=== PATIENT | male | born 1950 | race Caucasian/White ===

== ENCOUNTER 2016-09-05 10:38 | Day surgery (SDC) | payer MEDICARE, MEDICAID ==
--- NOTE | 2016-09-03 15:27 | PCM.ANEPRE ---
Anesthesia Pre-Op Review Reason for Review: AAA, moderate thrumbus, now off plavix Anesthesia Recommendations: Delay until Additional Data Obtain (Follow-up with Dr. Hamlin given changes in ultrasound findings and potential need for resuming Plavix.) Ed Ross MD Sep 03, 2016 15:27
[~2016-09-05] VITALS: Ht 172.7 cm; Wt 86.2 kg
[2016-09-05] VITALS (12 sets, daily range): BP systolic 126–186; BP diastolic 67–108; PULSE 54–80; RESP 11–24; O2SAT 92–98
[~2016-09-05 10:38] MED LIST: ADV250INH IH; ALBU8.5H2 INHALATION; ALLO300T2 PO; ATOR20TA PO; CHOL40003 PO; CLOP75TA28 PO; Clindamycin 600 mg/50 mL D5W IV ONE; LEVO750T39 PO; Lactated Ringer's 1,000 ML IV SCH; METO50TA3 PO; MULT-1018 PO; NITR0.4T SL; OXYC-465 PO; TIZA4CAP8 PO; TRAZ-115 PO
[2016-09-05] MEDS ORDERED: Ondansetron 2 mg/mL 2 mL Inj ONE (10:39)
[2016-09-05] MEDS ORDERED: Neostigmine 1 mg/mL 10 mL Inj ONE (10:39)
[2016-09-05] MEDS ORDERED: Propofol 10,000 mCg/mL 20 mL Inj ONE (10:39)
[2016-09-05] MEDS ORDERED: Glycopyrrolate 0.2 MG/ML 1mL Inj ONE (10:39)
[2016-09-05] MEDS ORDERED: Rocuronium 10 mg/mL 5 mL Inj ONE (10:39)
[2016-09-05] MEDS ORDERED: fentaNYL-PF 50 mCg/mL 2 mL Inj ONE (10:39)
[2016-09-05] MEDS ORDERED: Lactated Ringer's 1,000 ML IV ONE (11:18)
[2016-09-05] MEDS ORDERED: Clindamycin 600 mg/50 mL D5W Premix IV ONE (11:31)
--- NOTE | 2016-09-05 12:45 | PCM.HPANE ---
Patient Data Surgeon Admitting Provider: Attending Provider:Itz Clarke MD Primary Care Physician:Gibson Carranza MD Other Provider:lEliot Gudino Anesthesia Reason for Visit Left Inguinal Hernia Ht/WT & BMI Height (Feet): 5 Height (Inches): 8.00 Weight (Kilograms): 86.180 Body Mass Index 28.00 Allergies Coded Allergies: Penicillins (Verified Allergy, Severe, "rash, itching, hives, made me a nervous wreck", 03/23/12) isosorbide (Verified Allergy, Intermediate, HEADACHE, 06/25/15) codeine (Verified Allergy, Unknown, nausea, 09/03/16) Past Anesthesia History Anesthesia History: Denies:: Abnormal Airway, Anesthesia Reactions (no prior anes), Difficult Intubation, Fam Anesthesia Reaction Diabetes History Hx Diabetes?: No MRSA MRSA: No Medications Blood Thinner: Plavix Hypertension Medication: Yes Home Meds Incl Beta Anjum: Yes Date Beta Anjum Taken: Sep 05, 2016 Time Beta Anjum Taken: 744 Reported Medications Cholecalciferol (Vitamin D3) (Vitamin D3)4,000 Unit Capsule4,000 Unit PO DAILY 09/03/16 Trazodone 50 Mg [id number] Mg PO HS Ref 0 09/03/16 Tizanidine 4 Mg Capsule4 Mg PO Q8H PRN back/muscle pain 09/03/16 oxyCODONE-Acetaminophen 7.5-325 mg 1 Each Tablet1 Tab PO Q6H PRN For Pain Ref 0 09/03/16 Nitroglycerin SL (Nitrostat)0.4 Mg Tab.subl0.4 Mg SL Q5MIN PRN For Chest Pain # 1 BOTTLE 09/03/16 Multivitamin (Multi Vitamin Daily)1 Each Tablet1 Each PO DAILY 30 Days Ref 0 09/03/16 Metoprolol Tartrate 50 Mg Qbvktr60 Mg PO BID 30 Days Ref 0 09/03/16 Levofloxacin 750 Mg Bkalru800 Mg PO DAILY 09/03/16 Clopidogrel 75 Mg Jwcvlw15 Mg PO DAILY Ref 0 last dose friday08/31/16 09/03/16 Atorvastatin (Lipitor)20 Mg Thwzwl61 Mg PO DAILY Ref 0 09/03/16 Allopurinol 300 Mg Wllude960 Mg PO DAILY Ref 0 09/03/16 Albuterol HFA (Proair HFA)8.5 Gm Hfa.aer.ad2 Puffs INHALATION Q4H PRN For Shortness of Breath #1 INHALER 09/03/16 Fluticasone/Salmeterol (Advair 250-50 Diskus)60 Puff/Inh Disk1 Puff IH BID #1 DISK Ref 0 09/03/16 Discontinued Reported Medications Albuterol-Expunged Drug, Do Not Renew! 90 Mcg/Puff Hfa.aer.ad2 Puffs INH QID PRN 04/24/12 Simvastatin-Expunged Drug, Choose New Med! 40 Mg Ptdpkh73 Mg PO HS INPATIENT MAX DOSE 40 MG 03/25/12 Clopidogrel-Expunged Drug, Do Not Renew! (Plavix-Expunged Drug, Do Not Renew!) 75 Mg Tjkrbi44 Mg PO DAILY 03/25/12 Metoprolol Tart-Expunged Drug, Do Not Renew! 50 Mg Tsqipc79 Mg PO BID 03/25/12 [Nicotine Patch] No Conflict Check1 Patch SUBD DAILY 03/25/12 Aspirin-Expunged Drug, Do Not Renew! 81 Mg Tab.chew81 Mg PO DAILY 03/25/12 Amitriptyline-Expunged Drug, Do Not Renew! 25 Mg Kvdmho13 Mg PO HS 03/23/12 History History of ENT Problems?: No HEENT History: Denies:: Abnormal Airway Cataracts Difficult Intubation Dysphagia Glaucoma Hearing Problem Sinus Problem (mornings "plugged up") TMJ Teeth Condition: Missing Teeth Hx of Heart Problems?: Yes Cardiovascular History: Positive for:: Abdominal Aortic Aneurism (abdominal aortic 4.4cm) Chest Pain Hypertension Denies:: Cardiac Surgery Congestive Heart Failure Edema Heart Murmur Irregular Heartbeat Pacemaker Thrombophlebitis Other History/Comments AAA with clot on plavix, cleared by cardiology to proceed with surgery, Last dose of SL nitro 1 month ago, Cardiac ROS negative, limited exercise tolerance, 100 feet, possibly one flight of stairs, Hx of Respiratory Problem?: Yes Respiratory History: Positive for:: Asthma COPD Emphysema Use of Inhalers / NEBS Denies:: Chest Surgery Dyspnea Hemoptysis Oxygen Administration Pneumonia Tuberculosis Use of C-PAP Machine (sleep study scheduled 10/11 - ) Other History/Comment Daily use of MDI, No 02 requirement, limited activity toleralce secondary to SOB Hx Neurologic Problems?: Yes Neurological History: Positive for:: Headaches (related to fx neck/) Denies:: Alzheimer's Disease CVA Dementia Dizziness Multiple Sclerosis Parkinson's Disease Seizures Hx of GI Problems?: Yes Gastrointestinal History: Denies:: Cirrhosis Gall Bladder Disease Gastroesphageal Reflux Gastrointestinal Bleeding Hepatitis Other GI Pertinent History: left inguinal hernia current admission problem Hx of Problems?: No Genitourinary History: Denies:: Kidney Stones Urinary Tract Infection Male Hx: Denies:: Prostate Problems Scrotal Mass Testicular Surgery Skin History: Denies:: History Skin Disorders? Pressure Ulcers Hx Musculoskeletal Problems?: Yes Musculoskeletal History: Positive for:: Back Injury (cervical neck fx- no surgery 30 years ) Musculoskeletal Trauma (history of fx neck, arms) Osteoarthritis Rheumatoid Arthritis Denies:: Fibromyalgia Joint Replacement Hx of Psycho/Social Problems?: No Psycho Social History: Denies:: Anxiety Hx Depression Hx Surgeries?: No Hx Any Other Health Problems?: No Other History: Positive for:: Hospitalization Denies:: Cancer Endocrine Disease Thyroid Disease History Blood Transfusions: Positive for:: Accept Blood Products? Blood Transfusions Denies:: Blood Transfuse Reaction Hx Diabetes: No Hx Alcohol Use: YesAlcoholic Drinks Per Day: beer one to three times weeklyHx Substance Use: Yes (marijuana randomly ) Smoking Status: Current Every Day Smoker Have You Smoked inLast 12 mo: Yes (4-5 cigarettes daily) Stop/Bang S-Snoring: Do You Snore Loudly: Yes T-Tired: feel tired, fatigued: Yes O-Obsered: Observed not breath: Yes P-Blood Pressure: treated: Yes B- Body Mass Index > 35 kg/m2: No A- Age over 50: Yes N- Neck Large Circumference: No G- Gender Male: Yes RAMU Total Score: 6 Risk Assessment Category Category 1A: Patient has history of documented sleep apnea, and HAS NOT received any narcotic, sedative or anesthesia administration during this stay. Category 1B: Patient has history of documented sleep apnea, and HAS received any narcotic , sedative or anesthesia administration during this stay Category 2: Patient has SUSPECTED Obstructive Sleep Apnea, and HAS received any narcotic , sedative or anesthesia administration during this stay. Category 3: Patient has SUSPECTED Obstructive Sleep Apnea and HAS NOT received narcotic, sedative or anesthesia administration during this stay. Category 4: Outpatient in Procedural Areas with known sleep apnea or who screen positive for High Risk via the STOP/BANG questionnaire. Exam Exam Vital Signs Vital Signs Date Time Temp Pulse Resp B/P Pulse Ox O2 Delivery O2 Flow Rate FiO2 09/05/16 11:16 36.6 54 14 150/86 95 Room Air General Appearance: Alert, Oriented X3, Cooperative Lungs: Clear to Auscultation Heart: Exam Unremarkable Meds/Labs/Diagnostics Admission Meds Current Medications Lactated Ringer's (Lr) 1,000 ml @ ud STK-MED ONCE IV Last administered on 09/05t 11:18; Start 09/05/16 at 11:18; Stop 09/05/16 at 11:19; Status DC Plan Impression Patient chart reviewed, patient interviewed and anesthestic plan with risks, benefits, and alternatives discussed, and informed consent obtained. NPO Status: clears to 0800 ASA Physical Status: ASA3 Severe Disease Anesthetic Plan: GA Bene/Risks/Altern/Consents: Yes HP Complete Prior to Induction: Yes Ridge Marin MD Sep 05, 2016 12:45
[2016-09-05] MEDS ORDERED: Bupivacaine-MPF 0.25% 30 mL Inj INFILTRATE ONE (12:58)
[2016-09-05] MEDS ORDERED: Lactated Ringer's 500 ML IV PRN (13:29)
[2016-09-05] MEDS ORDERED: Lactated Ringer's 1,000 ML IV SCH (13:29)
[2016-09-05] MEDS ORDERED: EPHEDrine Sulfate 50 mg/mL Inj IVPUSH PRN (13:30)
[2016-09-05] MEDS ORDERED: Ondansetron 2 mg/mL 2 mL Inj IVPUSH PRN (13:30)
[2016-09-05] MEDS ORDERED: Dexamethasone 4 mg/mL Inj IVPUSH PRN (13:30)
[2016-09-05] MEDS ORDERED: MetoCLOpramide 5 mg/mL 2 mL Inj IVPUSH PRN (13:30)
[2016-09-05] MEDS ORDERED: Phenylephrine 10,000 mCg/mL Inj IVPUSH PRN (13:30)
[2016-09-05] MEDS ORDERED: oxyCODONE-Acetamin 5-325 mg Tablet PO PRN (14:10)
[2016-09-05] MEDS: fentaNYL-PF 50 mCg/mL 2 mL Inj IVPUSH PRN ×4 (14:10→14:46)
--- NOTE | 2016-09-05 14:12 | PCM.ANEP1 ---
Post Anesthesia Phase 1 PACU Phase 1 Assessment Vital Signs Vital Signs Date Time Temp Pulse Resp B/P Pulse Ox O2 Delivery O2 Flow Rate FiO2 09/05/16 11:16 36.6 54 14 150/86 95 Room Air Anesthetic Administered: GA Level of Alertness: Awake, talking FOLEY's with Equal Strength: Yes Pain: Yes Pain Scale Score: 8 Nausea or Vomiting: No Lungs: Clear to Auscultation Dermatome Level: Full Sensation Ridge Marin MD Sep 05, 2016 14:11
[2016-09-05] MEDS: HYDROmorphone 1 mg/mL Inj IVPUSH PRN ×4 (14:29→15:16)
--- NOTE | 2016-09-05 14:51 | PCM.ANEP2 ---
Post Anesthesia Evaluation ASA/CMS Post Anesthesia VS in Patient's Normal Range?: Yes Resp Stable; Airway Patent?: Yes CV Function & Hydration Stable: Yes Mental Status Recovered?: Yes Pain control Satisfactory?: Yes N/V Control Satisfactory?: Yes Ridge Marin MD Sep 05, 2016 14:51
--- NOTE | 2016-09-06 01:55 | OP ---
[address] [address] OPERATIVE REPORT PATIENT: KALYANI FRAZIER : 1950 MR#: [id number] ADMIT: 09/05/2016 JOB ID: [id number] DATE OF SURGERY: 09/05/2016 ANESTHESIA: General. PREOPERATIVE DIAGNOSIS(ES): Recurrent left inguinal hernia. POSTOPERATIVE DIAGNOSIS(ES): Recurrent left inguinal hernia. OPERATIVE PROCEDURE: Laparoscopic repair of recurrent left inguinal hernia (total extraperitoneal approach). SURGEON: Itz Clarke MD. SHADE CLOTH FINISHER: Terri Renteria PA-C (the assistant director of financial aid was required for the safe and timely completion of the case). COMPLICATIONS: None. ESTIMATED BLOOD LOSS: Minimal. CONDITION: Satisfactory. SPECIMEN: None. FINDINGS: There is a direct defect. I was able to visualize the old mesh. This was repaired with a Bard 3DMax medium left mesh using a standard total extraperitoneal approach. INDICATIONS AND SIGNIFICANT HISTORY: The patient is a 65-year-old man who was referred to me for recent left groin pain and lump. The patient had no recollection of having undergone a previous left inguinal hernia repair, however, he clearly had a scar from a prior repair and intraoperative findings confirmed that indeed this was a recurrence. OPERATIVE TECHNIQUE: The patient was taken into the operating room and placed in the supine position. General anesthesia was administered and perioperative antibiotics were given. The abdomen and groin were prepped and draped in a standard surgical fashion. A procedure pause was performed. A small infraumbilical incision was made and the anterior rectus sheath on the right side opened and a 10 mm trocar inserted into the preperitoneal space. Insufflation was delivered and blunt dissection with camera to develop that space ensued. Local anesthetic was then injected, followed by insertion of two 5 mm ports in the lower midline. I then continued to dissect out the preperitoneal space on the left side. Easily visible direct hernia was identified. Able to also see some of the old mesh. I completely dissected out the preperitoneal space, reduced the hernia, and then used a 0 PDS Endoloop to close the direct defect by reaching up and pulling the transversalis into the defect and Endolooping it. A piece of left-sided Bard medium 3DMax mesh was then placed over the defect with good coverage. Insufflation was then released and the peritoneum seemed to billow over the mesh to hold it in place. Ports removed. The umbilical fascia was closed using 0 PDS. The skin was closed using Monocryl. The entire procedure was well tolerated without complication.
== END 2016-09-05 23:59 | disposition home or self-care (01) ==
LOC: SAS 10:38
PROVIDERS: ATTEND General Practice
DX: K40.91 Unilateral inguinal hernia, without obstruction or gangrene, recurrent (principal); I25.10 Atherosclerotic heart disease of native coronary artery without angina pectoris; I73.9 Peripheral vascular disease, unspecified; I25.2 Old myocardial infarction; I10 Essential (primary) hypertension; E78.2 Mixed hyperlipidemia; G47.00 Insomnia, unspecified; J44.9 Chronic obstructive pulmonary disease, unspecified; F41.9 Anxiety disorder, unspecified; F43.10 Post-traumatic stress disorder, unspecified; M51.36 Other intervertebral disc degeneration, lumbar region; E55.9 Vitamin D deficiency, unspecified; F17.210 Nicotine dependence, cigarettes, uncomplicated; Z79.51 Long term (current) use of inhaled steroids
CPT/HCPCS: 49651; C1781; J1170; J2250; J2405; J2710; J3010; J7120

== ENCOUNTER 2017-01-10 11:28 | Inpatient (IN) | payer MEDICARE, MEDICAID ==
[~2017-01-10] VITALS: Ht 182.9 cm; Wt 87.8 kg
[~2017-01-10 11:28] MED LIST changes: -Clindamycin 600 mg/50 mL D5W IV ONE; -Lactated Ringer's 1,000 ML IV SCH
[2017-01-10 11:31] VITALS: BP 104/70; PULSE 74; RESP 16; O2SAT 98
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
[2017-01-10 12:40] LABS: BASOPHILS % (AUTO) 0.1 % (0-3); EOSINOPHILS % (AUTO) 0.3 % (0-5); MONOCYTES % (AUTO) 6.2 % (4-12); Mean Corpuscular Hemoglobin 33.3 pg (27.0-35.0); Mean Corpuscular Volume 96.3 fL (81-100); NEUTROPHILS % (AUTO) 86.6 % (40-74); Platelet Count 167 bil/L (150-400)
--- NOTE | 2017-01-10 12:42 | DRSVH ---
PROCEDURE: CT KUB ([id number]) INDICATIONS: difficulty urinating TECHNIQUE: Noncontrast 5 mm thick sections acquired from the diaphragms to the symphysis. 5 mm thick coronal an d sagittal reformats were then performed. For radiation dose reduction, the following was used: aut omated exposure control, adjustment of mA and/or kV according to patient size. COMPARISON: None. FINDINGS: Image quality: Excellent. Lung bases: There is a lobulated nodule within the left lower lobe partially visualized, measuring up to 8 mm. There is an adjacent groundglass nodule partially visualized measuring up to at least 15 m m. There are mild centrilobular emphysematous changes in the lung bases. Heart size is normal. Urinary system: Kidneys demonstrate no hydronephrosis or renal stones. There are small bilateral re nal cysts. Mild nonspecific stranding is also noted bilaterally. The ureters are normal in caliber without ureteral stones. The urinary bladder is partially distended but there is suggestion of mild wall thickening and trabeculation. There is mild enlargement of the prostate. Other solid organs: Liver and spleen are normal in size. Gallbladder appears within normal limits w ithout calcified gallstones. Pancreas is normal in contours. No adrenal nodules. Peritoneum and bowel: Unenhanced bowel loops demonstrate normal wall thickness and caliber. There i s colonic diverticulosis without diverticulitis. No free fluid or air. Nodes and vessels: No retroperitoneal or mesenteric adenopathy by size criteria. There is a saccula r aneurysm of the infrarenal abdominal aorta measuring up to 4.7 cm in anteroposterior dimension. Th ere is extensive atherosclerotic vascular calcification as well as eccentric mural thrombus within th e aneurysm. Abdominal wall: No ventral hernias. Pelvis: No free pelvic fluid. No inguinal hernias or adenopathy. Bones: No suspicious bony lesions. There is an anterior compression deformity along the inferior en dplate of T12 of indeterminate acuity. There is approximately 50% loss of height centrally. No retr opulsed bony fragments. IMPRESSION: 1. No nephrolithiasis or hydronephrosis. 2. Mild perinephric stranding bilaterally is nonspecific and may represent chronic changes but in th e appropriate clinical context pyelonephritis is not excluded. 3. Mild bladder wall thickening and trabeculation may reflect sequela of chronic bladder outlet obst ruction or a mild cystitis. 4. Partially visualized left lower lobe pulmonary nodules measuring up to at least 15 mm. Recommend further evaluation with dedicated chest CT. 5. Infrarenal abdominal aortic aneurysm measuring up to 4.7 cm. 6. Mild to moderate anterior compression deformity of the T12 vertebral body of indeterminate acuity . No retropulsed bony fragments. Dictated by: Issa Duran M.D. on 01/10/2017 at 12:31 Approved by: Issa Duran M.D. on 01/10/2017 at 12:41
[2017-01-10] MEDS ORDERED: 0.9% Sodium Chloride 1,000 ML IV ONE (12:55)
[2017-01-10] MEDS ORDERED: oxyCODONE-Acetamin 10-325 mg Tablet PO ONE (13:05)
[2017-01-10 13:36] LABS: APPEARANCE,URINE SLIGHTLY CLOUDY (CLEAR,HAZY); COLOR,URINE YELLOW (YELLOW)
[2017-01-10 13:37] LABS: OCCULT BLOOD,URINE LARGE (NEGATIVE); UROBILINOGEN,URINE NORMAL (NORMAL)
--- NOTE | 2017-01-10 13:54 | DRSVH ---
PROCEDURE: CT CHEST WITHOUT CONTRAST ([id number]) INDICATIONS: pulmonary nodule TECHNIQUE: Noncontrast 5 mm thick sections acquired from the pulmonary apices to the posterior costophrenic angl es. 7 mm thick coronal and sagittal MIP reformats were then acquired. For radiation dose reduction, the following was used: automated exposure control, adjustment of mA and/or kV according to patient size. COMPARISON: [facility], CT, CHEST/ABD/PELVIS W/CON (PNL), 07/28/2012, 22:18. [facility], CT, CT KUB, 01/10/2017, 12:09. FINDINGS: Image quality: Excellent. Lungs and pleura: Within the left lower lobe, there are 2 adjacent lobulated soft tissue nodules humaira suring up to 2.3 x 1.2 cm and 0.9 x 0.5 cm. There are mild centrilobular emphysematous changes. No pleural effusions or pneumothorax. Central and peripheral airways are patent and normal in caliber. Mediastinum: Heart size is normal. No pericardial effusion. There is coronary artery vascular calc ifications. No mediastinal adenopathy by size criteria. Thoracic aorta and central pulmonary arteri es are normal in size. Esophagus is normal in caliber. No hiatal hernia. Bones and chest wall: No suspicious bony lesions. There is a large calcified body in the right subc oracoid recess measuring up to 3 cm. There is a mild inferior endplate compression deformity of the T12 vertebral body of indeterminate acuity noted with rupture approximate amounts of height. No retr opulsed bony fragments. No axillary or supraclavicular adenopathy by size criteria. Thyroid gland i s partially visualized. Abdomen: Visualized upper abdomen demonstrates nonspecific stranding bilaterally. There are also pa rtially visualized renal cysts. IMPRESSION: 1. 2 lobulated left lower lobe pulmonary nodules highly suspicious for a neoplasm, likely cardiogeni c carcinoma. Given their size, recommend histologic sampling with percutaneous biopsy of the larger nodule. 2. No evidence of lymphadenopathy or metastatic disease in the thorax. These findings as well as findings from the recent abdominal CT were discussed with Sammie Ivey on 12/15 01/30 at 1:45 PM. Dictated by: Issa Duran M.D. on 01/10/2017 at 13:44 Approved by: Issa Duran M.D. on 01/10/2017 at 13:53
[2017-01-10] MEDS ORDERED: Meropenem Inj 1,000 MG in 0.9% Sodium Chloride 50 ML IV ONE (14:10)
[2017-01-10] MEDS ORDERED: ZOLP10TA5 PO (14:49)
[2017-01-10] MEDS ORDERED: BUPR150T12 PO (14:49)
[2017-01-10] MEDS ORDERED: [UNRECOGNIZED DRUG - CODE] PO (14:49)
[2017-01-10] MEDS ORDERED: AMLO5TAB2 PO (14:49)
[2017-01-10] MEDS ORDERED: ADV250INH INHALATION (14:49)
[2017-01-10] MEDS ORDERED: Alum-Mag Hydrox-Simeth 30 mL Suspension PO PRN (16:55)
[2017-01-10] MEDS ORDERED: Ondansetron 2 mg/mL 2 mL Inj IVPUSH PRN (16:55)
[2017-01-10] MEDS ORDERED: Polyethylene Glycol (PEG) 17 Gm Powder PO PRN (16:55)
[2017-01-10 17:05] VITALS: BP 110/72; PULSE 72; RESP 16; O2SAT 97
[2017-01-10 17:15] VITALS: BP 131/78; PULSE 65; RESP 18; O2SAT 97
[2017-01-10] MEDS: 0.9% Sodium Chloride 1,000 ML IV SCH (17:47)
[2017-01-10] MEDS ORDERED: OXYCODONE ACETAMINOPHEN PO PRN (18:05)
[2017-01-10] MEDS ORDERED: Albuterol 2.5 mg/3 mL Inhalation Solution NEB PRN (18:16)
--- NOTE | 2017-01-10 18:20 | NUR ---
Admit Patient admitted into room via gurney and transferred to bed independently. Reports pain in his lower half of his back at 5/10 on the pain scale. Denies chest pain and states his shortness of breath is no different from the usual. Call light within reach, IV fluids infusing, oriented to room, plan on white board. Admit documentation complete.
[2017-01-10 20:00] VITALS: BP 131/84; PULSE 77; RESP 17; O2SAT 96
[2017-01-10] MEDS ORDERED: buPROPion SR 150 mg ER12 Tablet PO SCH (20:30)
[2017-01-10] MEDS: Fluticasone-Salmererol 250-50 Inhaler INHALATION SCH (20:38)
[2017-01-10] MEDS: oxyCODONE-Acetamin 5-325 mg Tablet PO PRN (20:49)
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
[2017-01-10] MEDS: Heparin 5,000 Unit/mL Inj SUBQ SCH (23:54)
[2017-01-10] MEDS: Meropenem Inj 1,000 MG in 0.9% Sodium Chloride 100 ML IV SCH (23:54)
[2017-01-11] VITALS (7 sets, daily range): BP systolic 109–136; BP diastolic 73–80; PULSE 59–72; RESP 17–20; O2SAT 94–98
[2017-01-11] MEDS: oxyCODONE-Acetamin 5-325 mg Tablet PO PRN ×3 (02:49→19:29)
[2017-01-11] MEDS: 0.9% Sodium Chloride 1,000 ML IV SCH (02:49)
--- NOTE | 2017-01-11 03:39 | NUR ---
Medication/Anxiety Patient visibly upset. Unable to reach family by phone, this RN and the UA able to call family and transfer call to patients room. Voiced concern about sleep, requested sleep medication in-addition to nicotine lozenges. Swing resident paged, changes made to medication, patient now pleased with new orders. Noted decrease in anxiety and restlessness, pain levels managed, patient now sleeping comfortably.
[2017-01-11 05:40] LABS: BASOPHILS % (AUTO) 0.1 % (0-3); EOSINOPHILS % (AUTO) 1.3 % (0-5); MONOCYTES % (AUTO) 7.3 % (4-12); Mean Corpuscular Hemoglobin 32.9 pg (27.0-35.0); Mean Corpuscular Volume 97.6 fL (81-100); NEUTROPHILS % (AUTO) 79.9 % (40-74); Platelet Count 167 bil/L (150-400)
[2017-01-11] MEDS: Meropenem Inj 1,000 MG in 0.9% Sodium Chloride 100 ML IV SCH (06:06)
[2017-01-11] MEDS: Heparin 5,000 Unit/mL Inj SUBQ SCH ×3 (08:04→23:40)
[2017-01-11] MEDS: Fluticasone-Salmererol 250-50 Inhaler INHALATION SCH ×2 (08:17→21:24)
[2017-01-11] MEDS: cefTRIAXone Inj 2,000 MG in Dextrose 5% Minibag Plus 50 ML IV SCH (11:32)
--- NOTE | 2017-01-11 13:28 | NUR ---
Inpatient status effective today, ERIN signed.
--- NOTE | 2017-01-11 15:03 | PCM.PNMED ---
Subjective Date of Service Jan 11, 2017 Subjective Denies any new issues/complaints Exam Vital Signs Vital Sign - Last Date Time Temp Pulse Resp B/P Pulse Ox O2 Delivery O2 Flow Rate FiO2 01/11/17 12:12 36.7 65 20 122/73 96 01/11/17 08:59 Room Air Intake and Output 01/10/17 01/10/17 01/11/17 Cumulative From/Thru 15:00 23:00 07:00 01/10/17 11:31 - 01/11/17 06:09 Intake Total 300 ml 3608 ml 3908 ml Output Total 400 ml 2056 ml 750 ml 3206 ml Balance -400 ml -1756 ml 2858 ml 702 ml Intake Oral 300 ml 2074 ml 2374 ml IV Total 1534 ml 1534 ml Output Urine Total 400 ml 2056 ml 750 ml 3206 ml Bladder Scan Volume Amount 100 # Bowel Movements 0 0 General: Alert, Oriented X3, Cooperative, No Acute Distress Head: Normal Eyes: Scleral Anicteric Nose: Mucous Membr Moist/[place] Mouth: Mucous Membr Moist/[place] Neck: Supple Chest & Lungs: Chest Wall Normal, Clear to auscultation & percussion Cardiovascular: Regular Rate/Rhythm Pulses: NL carotid, radial, femoral, DP, PT Abdomen: Non-tender, Non-distended, Normoactive bowel tones, Soft Genitialial: Normal (Song cath in place with yellow urine) Extremities: No cyanosis/clubbing/edma bilat Neurological: Grossly Neurologically Intact, Normal Speech IVs and Medications Medications Reviewed: Medications were reviewed in detail Lab and Diagnostics Result Diagram: 01/11/1725 01/11/17 0525 X-Rays, CTs and MRIs CT KUB 1. No nephrolithiasis or hydronephrosis. 2. Mild perinephric stranding bilaterally is nonspecific and may represent chronic changes but in the appropriate clinical context pyelonephritis is not excluded 3. Mild bladder wall thickening and trabeculation may reflect sequela of chronic bladder outlet obstruction or a mild cystitis 4. Partially visualized left lower lobe pulmonary nodules measuring up to at least 15 mm. Recommend further evaluation with dedicated chest CT 5. Infrarenal abdominal aortic aneurysm measuring up to 4.7 cm. 6. Mild to moderate anterior compression deformity of the T12 vertebral body of indeterminate acuity. No retropulsed bony fragments Dictated by: Issa Duran M.D. on 01/10/2017 at 12:[address] 1. 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 Given their size, recommend histologic sampling with percutaneous biopsy of the larger nodule. 2. No evidence of lymphadenopathy or metastatic disease in the thorax. These findings as well as findings from the recent abdominal CT were discussed with Sammie Ivey on 01/10/17 at 1:45 PM. Dictated by: Issa Duran M.D. on 01/10/2017 at 13:44 Assessment & Plan 66-year-old male with acute urinary retention and flank pain of 3 days' duration with new pulmonary nodules noted on lung CT # Acute Pyelonephritis; present on admission; ongoing -Patient presents with flank pain and signs of kidney infection including flank pain and dysuria -Prostate is enlarged -Patient started on meropenem on admission due to suspicion that patient may have been on Levofloxacin when presenting; Zosyn not available due to allergy -Per discussion with patient he had not been on Levofloxacin when presenting with current symptoms. -Deescalating Abx to Ceftriaxone on 01/11/17 -Urine and blood cultures pending -Received 1 L of saline in the emergency department and 125 mL/hour on admit -Oxycodone PO and Morphine IV prn for pain # Lung nodules; present on admission; ongoing -Greater than [id number] history of smoking; concern for malignancy -2 lobulated left lower lobe pulmonary nodules are seen on CT of the chest -CT-guided biopsy of the lung nodules ordered on 01/11/17. Will followup with interventional radiology # Acute electrolyte abnormalities; present on admission; ongoing -Acute hyponatremia and hypochloremia -Resolved with IV fluids -Hyper bilirubinemia also resolved with IV fluids. # Hypertension, chronic; present on admission; stable -Blood pressure is appropriate on admit -Continue home medications # Tobacco dependence; present on admission; ongoing -Nicotine patch ordered # CAD with an STEMI. Presumed stable. -Continue aspirin and Plavix # COPD. Stable -Continue albuterol # Hyperlipidemia -Continue atorvastatin # Gout. Stable. -Continue allopurinol Disposition: 2-3 days VTE Prophylaxis: Sub-Q Heparin (Unfractionated) VTE Mechanical Devices: Intermittant Pneumatic CD Resuscitation Status: CPR: Attempt Resuscitation John Denis Jan 11, 2017 15:03
--- NOTE | 2017-01-11 18:39 | NUR ---
Activity- Patient complained of back pain which is chronic for him. Ordered oral pain meds given and effective for discomfort. Ambulated in hallway with standby assist, and sat up in a chair. Patient complained of some weakness with walking, but tolerated activity well. Song cath. draining karin urine.
--- NOTE | 2017-01-11 21:40 | NUR ---
Activity/Pain Patient requesting to go to vending machine at beginning of shift. Walked with staff member SBA to vending machines. Tolerated well, some generalized discomfort while walking. Denied dizziness/lightheadedness. Receiving one Percocet 5/325 with Oxycodone 2.5 mg PO for pain management. Results effective per patient upon reassessment.
[2017-01-12] MEDS: oxyCODONE-Acetamin 5-325 mg Tablet PO PRN ×4 (05:48→18:05)
[2017-01-12 06:04] VITALS: BP 130/79; PULSE 71; RESP 16; O2SAT 96
[2017-01-12 06:13] LABS: BASOPHILS % (AUTO) 0.6 % (0-3); EOSINOPHILS % (AUTO) 2.3 % (0-5); MONOCYTES % (AUTO) 9.8 % (4-12); Mean Corpuscular Hemoglobin 32.8 pg (27.0-35.0); Mean Corpuscular Volume 97.4 fL (81-100); NEUTROPHILS % (AUTO) 72.4 % (40-74); Platelet Count 163 bil/L (150-400)
[2017-01-12 06:27] LABS: INR 0.92 ratio
[2017-01-12] MEDS: Heparin 5,000 Unit/mL Inj SUBQ SCH ×2 (07:48→16:15)
[2017-01-12 07:50] VITALS: BP 125/77; PULSE 63; RESP 20; O2SAT 93
[2017-01-12] MEDS: Fluticasone-Salmererol 250-50 Inhaler INHALATION SCH ×2 (07:52→20:20)
[2017-01-12 09:02] VITALS: PULSE 66; RESP 16; O2SAT 95
--- NOTE | 2017-01-12 10:47 | NUR ---
Social Work: Initial Assessment/Multi-Disciplinary Rounds D: EMR reviewed. Please see Initial Assessment linked to this note for more information. Pt is a 66 y/o male admitted for pyeloneititis, new dx of lung cancer per H&P. Pt has a readmit risk score of 3. SW met with pt and brother Jesus Olmos at bedside to conduct initial assessment. Pt was alert and oriented x3. SW explained role and wrote phone number on white board. SW provided "Your Discharge Planning Checklist" and encouraged pt to contact SW for any discharge planning questions. Pt's insurance is [employer] and [employer]. PCP is Jose Francisco Carranza MD. Pt gave verbal consent to contact mother Africa Olmos [phone] or son Oc Olmos [phone] for discharge planning. DPOA/advanced directive ppw discussed - ppw provided to pt and SW encouraged pt to provide a copy to the hospital once complete. Pt a CPAP machine - no other DME. Pt is independent with all ADLs. Pt lives in a Mobile Home with 0 steps and wheelchair access. Pt discussed in multidisciplinary rounds. Per multidisciplinary rounds, pt is not medically stable for discharge home today, possible discharge tomorrow pending biopsy - no SW needs identified, no MD orders received. A: SW assessed pt's capacity for self-care. SW does not have any concerns for pt's capacity for self-care. Pt is independent with ADLs at baseline. Pt does not have any concerns regarding discharge at this time. Pt feels safe discharging home and will remain independent. P: Pt likely to discharge home tomorrow - pending biopsy - with family (mother or son) to transport via POV. No SW needs identified. No MD orders received. SW will continue to follow for needs. SEMAJ Franklin Addendum: 01/12/17 at 1053 by ATUL AHUMADA Amended: Links added.
[2017-01-12] MEDS: cefTRIAXone Inj 2,000 MG in Dextrose 5% Minibag Plus 50 ML IV SCH (10:53)
[2017-01-12 14:19] VITALS: BP 135/86; PULSE 60; RESP 18; O2SAT 98
--- NOTE | 2017-01-12 15:18 | PCM.PNMED ---
Subjective Date of Service Jan 12, 2017 Subjective Denies any new issues/complaints Exam Vital Signs Vital Sign - Last Date Time Temp Pulse Resp B/P Pulse Ox O2 Delivery O2 Flow Rate FiO2 01/12/17 14:19 36.6 60 18 135/86 98 Room Air 01/12/17 04:04 21 Intake and Output 01/11/17 01/11/17 01/12/17 Cumulative From/Thru 15:00 23:00 07:00 01/10/17 11:31 - 01/12/17 06:04 Intake Total 1566 ml 675 ml 6149 ml Output Total 1800 ml 2550 ml 7556 ml Balance -234 ml -1875 ml -1407 ml Intake Oral 920 ml 675 ml 3969 ml IV Total 646 ml 2180 ml Output Urine Total 1800 ml 2550 ml 7556 ml # Bowel Movements 0 0 0 Exam General: Alert, Oriented X3, Cooperative, No Acute Distress Head: Normal Eyes: Scleral Anicteric Nose: Mucous Membr Moist/[place] Mouth: Mucous Membr Moist/[place] Neck: Supple Chest & Lungs: Chest Wall Normal, Clear to auscultation bilat Cardiovascular: Regular Rate/Rhythm Pulses: NL DP, PT Abdomen: Non-tender, Non-distended, Normoactive bowel tones, Soft Genitalia: Song cath in place with yellow urine Extremities: No cyanosis/clubbing/edema bilat Neurological: Grossly Neurologically Intact, Normal Speech IVs and Medications Medications Reviewed: Medications were reviewed in detail Lab and Diagnostics Result Diagram: 01/12/17 0535 01/12/17 0535 X-Rays, CTs and MRIs CT KUB 1. No nephrolithiasis or hydronephrosis. 2. Mild perinephric stranding bilaterally is nonspecific and may represent chronic changes but in the appropriate clinical context pyelonephritis is not excluded 3. Mild bladder wall thickening and trabeculation may reflect sequela of chronic bladder outlet obstruction or a mild cystitis 4. Partially visualized left lower lobe pulmonary nodules measuring up to at least 15 mm. Recommend further evaluation with dedicated chest CT 5. Infrarenal abdominal aortic aneurysm measuring up to 4.7 cm. 6. Mild to moderate anterior compression deformity of the T12 vertebral body of indeterminate acuity. No retropulsed bony fragments Dictated by: Issa Duran M.D. on 01/10/2017 at 12:[address] 1. 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 Given their size, recommend histologic sampling with percutaneous biopsy of the larger nodule. 2. No evidence of lymphadenopathy or metastatic disease in the thorax. These findings as well as findings from the recent abdominal CT were discussed with Sammie Ivey on 01/10/17 at 1:45 PM. Dictated by: Issa Duran M.D. on 01/10/2017 at 13:44 Assessment & Plan 66-year-old male with acute urinary retention and flank pain of 3 days' duration with new pulmonary nodules noted on lung CT # Acute Pyelonephritis; present on admission; ongoing -Patient presents with flank pain and signs of kidney infection including flank pain and dysuria -Prostate is enlarged -Patient started on meropenem on admission due to suspicion that patient may have been on Levofloxacin when presenting; Zosyn not available due to allergy -Per discussion with patient he had not been on Levofloxacin when presenting with current symptoms. -Deescalated Abx to Ceftriaxone on 01/11/17 -Urine culture growing E. Coli -Received 1 L of saline in the emergency department and 125 mL/hour on admit -Oxycodone PO and Morphine IV prn for pain # Acute urinary retention. present on admission. - Song cath placed on admission - Plan voiding trial in am # Lung nodules; present on admission; ongoing -Greater than [id number] history of smoking; concern for malignancy -2 lobulated left lower lobe pulmonary nodules are seen on CT of the chest -CT-guided biopsy of the lung nodules planned for 01/13/17 # Acute electrolyte abnormalities; present on admission; ongoing -Acute hyponatremia and hypochloremia -Resolved with IV fluids -Hyper bilirubinemia also resolved with IV fluids. # Hypertension, chronic; present on admission; stable -Blood pressure is appropriate on admit -Continue home medications # Tobacco dependence; present on admission; ongoing -Nicotine patch ordered # CAD with an STEMI. Presumed stable. -Continue aspirin and Plavix # COPD. Stable -Continue albuterol # Hyperlipidemia -Continue atorvastatin # Gout. Stable. -Continue allopurinol Disposition: 1-2 days VTE Prophylaxis: Sub-Q Heparin (Unfractionated) VTE Mechanical Devices: Intermittant Pneumatic CD Resuscitation Status: CPR: Attempt Resuscitation John Denis Jan 12, 2017 15:18
[2017-01-12] MEDS ORDERED: Magnesium Hydroxide 10 mL Oral Concentration PO PRN (15:45)
[2017-01-12] MEDS ORDERED: Magnesium Hydroxide 10 mL Oral Concentration PO ONE (15:45)
--- NOTE | 2017-01-12 17:33 | NUR ---
PAIN/ACTIVITY Patient rated his pain as 7-9/10. Percocet 1 tab and Oxicodone 2.5 mg PO administered. Pain level is decreased to 2-4/10 after his pain medication, which is tolerable for him. Tolerating liquids PO and his diet well. Denies nausea. No emesis noted. No BM since Fri. Senna and Miralax administered this morning without any results. MD made aware. New orders for MOM and Colace received and administered. Prune juice X 2 given to the patient . No BM at this time. IFC intact and draining to karin colored UO. Voiding trial is planned for the AM. Ambulating independently in the room. Gait is steady.
[2017-01-12 19:25] VITALS: BP 132/81; PULSE 84; RESP 20; O2SAT 98
[2017-01-12 19:49] VITALS: PULSE 58; RESP 18; O2SAT 98
[2017-01-13] MEDS: oxyCODONE-Acetamin 5-325 mg Tablet PO PRN ×2 (00:53→09:06)
[2017-01-13] MEDS: Heparin 5,000 Unit/mL Inj SUBQ SCH ×2 (00:54→09:03)
--- NOTE | 2017-01-13 04:29 | NUR ---
Activity Pt reported having very large liquid BM last night. Pt reporting pain from 5-9/10 and took 1 Percocet and 2.5mg Oxycodone PO. Pt reports this to be effective for pain control. Pt was made NPO at midnight for CT guided lung biopsy planned for later today. Pt wearing CPAP at night. Song patent and draining slightly karin urine.
[2017-01-13 05:49] VITALS: BP 124/87; PULSE 63; RESP 20; O2SAT 99
[2017-01-13 07:30] VITALS: PULSE 62; RESP 18; O2SAT 98
[2017-01-13 08:58] VITALS: BP 144/92; PULSE 59; RESP 20; O2SAT 96
[2017-01-13] MEDS: Fluticasone-Salmererol 250-50 Inhaler INHALATION SCH (09:02)
[2017-01-13] MEDS: cefTRIAXone Inj 2,000 MG in Dextrose 5% Minibag Plus 50 ML IV SCH (11:16)
[2017-01-13 12:39] VITALS: BP 131/84; PULSE 51; RESP 18; O2SAT 97
[2017-01-13] MEDS ORDERED: CIPR-198 PO (14:51)
--- NOTE | 2017-01-13 14:59 | PCM.DIMED ---
Discharge Instructions Date of Service Jan 13, 2017 Dates of Hospitalization Jan 10, 2017 at 16:31 Discharge Diagnosis Discharge Diagnosis # Acute Pyelonephritis; present on admission; improving # Acute E. Coli urinary retention (UTI). present on admission. # Acute urinary retention, present on admission. Resolved - Post Song cath placement and removal during this hospitalization # Lung nodules; present on admission; ongoing -2 lobulated left lower lobe pulmonary nodules are seen on CT of the chest -Will need to followup with primary care provider as outpatient for arrangement of biopsy and further workup # Acute electrolyte abnormalities; present on admission. Resolved. -Acute hyponatremia and hypochloremia resolved. # Hypertension, chronic; present on admission; stable # Tobacco dependence; present on admission # CAD with an STEMI. Presumed stable. # COPD. Stable # Hyperlipidemia, chronic. Stable. # Gout. Stable. Diet Discharge Diet: Low fat, Low Sodium, Heart Healthy Activity Discharge Activity: No restrictions Call your provider Call your provider for: Fever or Chills, Shortness of breath, Bleeding, Chest pain, Vomitting, Excessive diarrhea Patient Instructions Patient Instructions Seek immediate medical attention if any new or worsening signs or symptoms occur. Follow-up plan 1. Followup with primary care provider (Dr. Carranza) tomorrow 01/14/17 at 1:[address] [address] Follow-up Provider: Gibson Carranza MD, Masoud Jan 13, 2017 14:59
--- NOTE | 2017-01-13 15:34 | NUR ---
Discharge Patient discharged to home by self via personal vehicle. Pain medication last administered in the 0900 hour. Patient alert, walked out of unit, fully educated regarding all d/c instructions. He is aware of his follow up appointment tomorrow. No questions at this time. Addendum: 01/13/17 at 1539 by TOMER VITALE RN Patient voided twice today with no difficulty or pain. Both measured PVR's were minimal. aware.
--- NOTE | 2017-01-13 15:41 | PCM.DC.MED ---
Discharge Summary Date of Service Jan 13, 2017 Dates of Hospitalization Date of Hospital Admission Jan 10, 2017 at 16:31 Date of Discharge: Jan 13, 2017 Providers: Admitting Physician: John Kenney Primary Care Physician: Gibson Carranza MD Attending Physician: John Kenney Diagnosis at Time of Discharge Diagnosis at Time of Discharge # Acute Pyelonephritis; present on admission; improving # Acute E. Coli urinary retention (UTI). present on admission. # Acute urinary retention, present on admission. Resolved - Post Song cath placement and removal during this hospitalization # Lung nodules; present on admission; ongoing -2 lobulated left lower lobe pulmonary nodules are seen on CT of the chest -Will need to followup with primary care provider as outpatient for arrangement of biopsy and further workup # Acute electrolyte abnormalities; present on admission. Resolved. -Acute hyponatremia and hypochloremia resolved. # Hypertension, chronic; present on admission; stable # Tobacco dependence; present on admission # CAD with an STEMI. Presumed stable. # COPD. Stable # Hyperlipidemia, chronic. Stable. # Gout. Stable. Procedures XRay, CTs & MRIs CT KUB 1. No nephrolithiasis or hydronephrosis. 2. Mild perinephric stranding bilaterally is nonspecific and may represent chronic changes but in the appropriate clinical context pyelonephritis is not excluded 3. Mild bladder wall thickening and trabeculation may reflect sequela of chronic bladder outlet obstruction or a mild cystitis 4. Partially visualized left lower lobe pulmonary nodules measuring up to at least 15 mm. Recommend further evaluation with dedicated chest CT 5. Infrarenal abdominal aortic aneurysm measuring up to 4.7 cm. 6. Mild to moderate anterior compression deformity of the T12 vertebral body of indeterminate acuity. No retropulsed bony fragments Dictated by: Issa Duran M.D. on 01/10/2017 at 12:[address] 1. 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 Given their size, recommend histologic sampling with percutaneous biopsy of the larger nodule. 2. No evidence of lymphadenopathy or metastatic disease in the thorax. These findings as well as findings from the recent abdominal CT were discussed with Sammie Ivey on 01/10/17 at 1:45 PM. Dictated by: Issa Duran M.D. on 01/10/2017 at 13:44 Brief History As noted in H&P by Dr. De Santiago: 66-year-old male with a history of an STEMI, hyperlipidemia, tobacco abuse, hypertension, and COPD who presents to the emergency department today due to ongoing complete urinary retention that started last night, but he states his been building for 3 days.. He also endorses pain that started on the left flank that is now moved to the right. Per the patient, this came on acutely and he was unable to void throughout the night though he attempted many times. He states that recently he is noticed increased burning and urinary urgency, as well as feelings of incomplete voiding. He denies fever, chills, nausea, vomiting, diarrhea, chest pain, shortness of breath, confusion or changes in mental status. The patient denies ever having this issue before as well as any hematuria. Patient is not sexually active but did have an STD as 20s. In the ED a Song catheter was placed draining nearly 2 L of cloudy fluid. Urine was positive for large amount of leukocyte esterase and moderate bacteria but negative for nitrite. Patient did show a leukocytosis but vital signs remained unremarkable Hospital Course # Acute Pyelonephritis; present on admission. Improving -Patient presents with flank pain and signs of kidney infection including flank pain and dysuria -Symptoms resolved by day of discharge -Patient started on meropenem on admission due to suspicion that patient may have been on Levofloxacin when presenting; Zosyn not available due to allergy -Per discussion with patient he had not been on Levofloxacin when presenting with current symptoms. -Deescalated Abx to Ceftriaxone on 01/11/17 -Urine culture growing E. Coli and he will be discharged home on PO Cipro based on sensitivity of the culture # Acute E. Coli urinary retention. present on admission. - Treatment as noted above # Acute urinary retention. Present on admission. Resolved - Song cath placed on admission - Song removed by day of discharge and passed voiding trial with minimal post void residual twice, before discharge # Lung nodules; present on admission; ongoing -Greater than [id number] history of smoking; concern for malignancy -2 lobulated left lower lobe pulmonary nodules are seen on CT of the chest -CT-guided biopsy of the lung nodules was planned for 01/13/17 however per interventional radiology (on 01/13) given the location of the nodules it was felt that percutaneous biopsy would not be safe and instead recommendation was made for possible surgical biopsy. I discussed patient's case with general surgery consult (Dr. Flowers) on 01/13 who recommends outpatient followup and referral after patient has finished treatment for current UTI. -I have set the patient up for followup with his PCP (Dr. Carranza) on 01/14/17 and communicated his hospital course with Dr. Carranza's PA/nurse today. # Acute electrolyte abnormalities; present on admission -Acute hyponatremia and hypochloremia -Resolved with IV fluids -Hyper bilirubinemia also resolved with IV fluids. # Hypertension, chronic; present on admission; stable -Blood pressure is appropriate -Continue home medications # Tobacco dependence; present on admission -Nicotine patch ordered during this hospital # CAD with an STEMI. Presumed stable. -Continued aspirin and Plavix # COPD. Stable -Continued albuterol # Hyperlipidemia -Continued atorvastatin # Gout. Stable. -Continued allopurinol Exam Vital Signs (Last) Date Time Temp Pulse Resp B/P Pulse Ox O2 Delivery O2 Flow Rate FiO2 01/13/17 12:39 36.7 51 18 131/84 97 Room Air 01/12/17 04:04 21 Exam General: Alert, Oriented X3, Cooperative, No Acute Distress Head: Normal Eyes: Scleral Anicteric Nose: Mucous Membr Moist/[place] Mouth: Mucous Membr Moist/[place] Neck: Supple Chest & Lungs: Chest Wall Normal, Clear to auscultation bilat Cardiovascular: Regular Rate/Rhythm Abdomen: Non-tender, Non-distended, Normoactive bowel tones, Soft Extremities: No cyanosis/clubbing/edema bilat Neurological: Grossly Neurologically Intact, Normal Speech Test 01/10/17 12:20 01/10/17 13:24 01/11/17 05:25 01/12/17 05:35 Direct Bilirubin 0.3mg/dL (0.0-0.3) Procalcitonin 0.41ng/mL (0.00-0.08) Hold [place] Top Tube Received (Received) Urine Color Yellow (YELLOW) Urine Appearance Slightly cloudy Urine pH 6.0 (5.0-8.0) Urine Specific [place] 1.005 (1.003-1.035) Urine Protein Negativemg/dL (NEG,TRACE) Urine Glucose (UA) Negativemg/dL (NEGATIVE) Urine Ketones Negativemg/dL (NEGATIVE) Urine Occult Blood Large (NEGATIVE) Urine Nitrite Negative (NEGATIVE) Urine Bilirubin Negative (NEGATIVE) Urine Urobilinogen Normalmg/dL (NORMAL) Urine Leukocyte Esterase Large (NEGATIVE) Urine RBC >50/hpf (0-2) Urine WBC Packed/hpf (0-5) Urine Epithelial Cells Occasional/hpf (NONE-MOD) Urine Crystals None seen (NONE SEEN) Urine Bacteria Moderate/hpf (NONE-FEW) Urine Hyaline Casts None/lpf (NONE) Urine Granular Casts None seen (NONE SEEN) Urine Waxy Casts None seen (NONE SEEN) Urine Red Blood Cell Casts None seen (NONE SEEN) Urine White Blood Cell Casts None seen (NONE SEEN) Urine Mucus None seen (None Seen) Urine Trichomonas None seen (NONE SEEN) Urine Yeast None (NONE SEEN) Urinalysis Comment None Urine Culture Reflexed Indicated Lactic Acid Level 0.8mmol/L (0.4-2.0) Total Bilirubin 0.6mg/dL (0.0-1.2) Aspartate Amino Transf (AST/SGOT) 18U/L (0-50) Alanine Aminotransferase (ALT/SGPT) 14U/L (0-44) Alkaline Phosphatase 78U/L (25-160) Total Protein 6.3g/dL (6.4-8.4) Albumin 3.5g/dL (3.4-5.0) Free Thyroxine 1.41ng/dL (0.82-1.77) White Blood Count 7.0th/mm3 (3.8-10.1) Red Blood Count 4.21mil/mm3 (4.40-5.80) Hemoglobin 13.8g/dL (13.8-17.2) Hematocrit 41.0% (41.0-50.0) Mean Corpuscular Volume 97.4fL (81-100) Mean Corpuscular Hemoglobin 32.8pg (27.0-35.0) Mean Corpuscular Hemoglobin Concent 33.7% (32.0-37.0) Red Cell Distribution Width 13.4% (12.3-15.4) Platelet Count 163bil/L (150-400) Neutrophils (%) (Auto) 72.4% (40-74) Lymphocytes (%) (Auto) 14.8% (14-46) Monocytes (%) (Auto) 9.8% (4-12) Eosinophils (%) (Auto) 2.3% (0-5) Basophils (%) (Auto) 0.6% (0-3) Prothrombin Time 9.8sec (8.1-12.5) Prothromb Time International Ratio 0.92ratio Activated Partial Thromboplast Time 28.0sec (22.8-33.0) Sodium Level 138mEq/L (134-144) Potassium Level 3.8mEq/L (3.5-5.2) Chloride Level 103mEq/L (97-108) Carbon Dioxide Level 21mmol/L (18-29) Blood Urea Nitrogen 9mg/dL (8-27) Creatinine 0.73mg/dL (0.76-1.27) Estimat Glomerular Filtration Rate 114mL/min (>59) Glucose Level 105mg/dL (60-99) Calcium Level 8.9mg/dL (8.5-10.1) Discharge Medications Discharge Medications Allopurinol (Allopurinol) 300 Mg Tablet 300 MG PO DAILY (Reported) Amlodipine (Amlodipine) 5 Mg Tablet 5 MG PO DAILY (Reported) Atorvastatin (Lipitor) 20 Mg Tablet 20 MG PO DAILY (Reported) Bupropion ER (Bupropion ER) 150 Mg Tablet.er 150 MG PO BID (Reported) Cholecalciferol (Vitamin D3) (Vitamin D3) 4,000 Unit Capsule 4,000 UNIT PO DAILY (Reported) Ciprofloxacin (Ciprofloxacin) 500 Mg Tablet 500 MG PO BID Prescribed by: JOHN KENNEY MD Clopidogrel (Clopidogrel) 75 Mg Tablet 75 MG PO DAILY (Reported) Fluticasone/Salmeterol (Advair 250-50 Diskus) 60 Puff/Inh Disk 1 PUFF INHALATION BID (Reported) Irbesartan (Avapro) 150 Mg Tablet 150 MG PO DAILY (Reported) Metoprolol Tartrate (Metoprolol Tartrate) 50 Mg Tablet 75 MG PO BID (Reported) Multivitamin (Multi Vitamin Daily) 1 Each Tablet 1 EACH PO DAILY (Reported) Zolpidem (Zolpidem) 10 Mg Tablet 10 MG PO HS (Reported) As needed Albuterol HFA (Proair HFA) 8.5 Gm Hfa.aer.ad 2 PUFFS INHALATION Q4H PRN PRN For Shortness of Breath (Reported) Nitroglycerin SL (Nitrostat) 0.4 Mg Tab.subl 0.4 MG SL Q5MIN PRN PRN For Chest Pain (Reported) Tizanidine (Tizanidine) 4 Mg Capsule 4 MG PO TID PRN PRN back/muscle pain ( Reported) oxyCODONE-Acetaminophen 7.5-325 mg (oxyCODONE-Acetaminophen 7.5-325 mg) 1 Each Tablet 1 TAB PO QID PRN PRN For Pain (Reported) Followup Plan Disposition: Home Follow-up plan 1. Followup with primary care provider (Dr. Carranza) tomorrow 01/14/17 at 1:[address] [id number] Discharge Diet: Low fat, Low Sodium, Heart Healthy Discharge Activity: No restrictions Patient Instructions Seek immediate medical attention if any new or worsening signs or symptoms occur. Follow-up Provider: Gibson Carranza MD Time spent 40 min copies to: Gibson Carranza MD, Masoud Jan 13, 2017 15:41
--- NOTE | 2017-01-13 17:54 | NUR ---
Social Work: Discharge D: EMR reviewed. Pt is on day 3 of hospitalization. Pt discussed in multidisciplinary rounds, biopsy negative. Per RN, pt up in [place] ambulating independently. No SW needs identified, no MD orders received. A: SW assessed pt's capacity for self-care. SW does not have any concerns for pt's capacity for self-care. Pt is independent with ADLs at baseline. Pt does not have any concerns regarding discharge at this time. Pt feels safe discharging home and will remain independent. P: Pt to discharge home today with family (mother or son) to transport via POV. No SW needs identified. No MD orders received. SEMAJ Franklin
== END 2017-01-13 15:35 | disposition home or self-care (01) | DRG 690 ==
LOC: SED 11:28 → OBSVTOIN 16:31 → OSC 16:31
PROVIDERS: ADMIT Internal Medicine; ATTEND Internal Medicine
DX: N10 Acute pyelonephritis (principal); E87.1 Hypo-osmolality and hyponatremia; B96.20 Unspecified Escherichia coli [E. coli] as the cause of diseases classified elsewhere; R33.9 Retention of urine, unspecified; I10 Essential (primary) hypertension; F17.210 Nicotine dependence, cigarettes, uncomplicated; I25.10 Atherosclerotic heart disease of native coronary artery without angina pectoris; J44.9 Chronic obstructive pulmonary disease, unspecified; E78.5 Hyperlipidemia, unspecified; M10.9 Gout, unspecified; R91.8 Other nonspecific abnormal finding of lung field